=== PATIENT | female | born 1950 | race Caucasian/White ===

== ENCOUNTER 2021-02-15 20:28 | Emergency (ER) | payer MEDICARE, OTHER ==
[~2021-02-15 20:28] MED LIST: AUGMENTIN 875-1 EACH PO; AZITHROMYCIN250 MG PO; BUSPAR 10MG10 MG PO; CRESTOR10 MG PO; DRISDOL1250 MCG PO; ELIQUIS5 MG PO; FISH OIL 1,2001 EACH PO; IPRAT-ALBUT 0.5-3 ML INH; LORATADINE10 MG PO; MEDROL DOSEPAK 24 MG PO; MUCINEX600 MG PO; MUPIROCIN22 GM TOP; PROAIR HFA8.5 GM INH; SOTALOL80 MG PO; TRIAMCINOLONE A80 GM TOP; VITAMIN B-121000 MCG PO; VITAMIN C500 M4 PO; VITAMIN E400 UNI4 PO; ZOLOFT100 MG PO
== END 2021-02-15 22:26 | disposition home or self-care (01) ==
LOC: ER1 20:28
DX: T78.40XA Allergy, unspecified, initial encounter (principal)
CPT/HCPCS: 96372; 99282; J2930

== ENCOUNTER → 2021-04-19 | Outpatient (CLI) | payer MEDICARE, OTHER | LOC: HEART 5 04-17 11:00 | DX: I20.9 Angina pectoris, unspecified (principal); R06.02 Shortness of breath ==

== ENCOUNTER 2021-08-05 18:15 | Emergency (ER) | payer MEDICARE, OTHER ==
[2021-08-05] MEDS ORDERED: IBU400 MG PO (19:36)
== END 2021-08-05 20:22 | disposition home or self-care (01) ==
LOC: ER1 18:15
DX: S92.354A Nondisplaced fracture of fifth metatarsal bone, right foot, initial encounter for closed fracture (principal); W19.XXXA Unspecified fall, initial encounter
CPT/HCPCS: 73610; 73630; 99283

== ENCOUNTER → 2021-10-11 | Outpatient (CLI) | payer MEDICARE, OTHER ==
[~2021-10-11] MED LIST changes: +IBU400 MG PO
== END ==
LOC: KOH-I 09:10
DX: S92.351D Displaced fracture of fifth metatarsal bone, right foot, subsequent encounter for fracture with routine healing (principal)
CPT/HCPCS: 73630

== ENCOUNTER 2021-10-24 09:14 | Emergency (ER) | payer MEDICARE, OTHER ==
[2021-10-24 09:52] LABS: HEMOGLOBIN 13.4 gm/dl (12.3-15.3); RED BLOOD COUNT 4.27 M/UL (4.00-5.10); WHITE BLOOD COUNT 4.4 K/UL (4.5-11.0)
[2021-10-24 10:15] LABS: BUN/CREATININE RATIO 20 (0-10)
== END 2021-10-24 11:00 | disposition home or self-care (01) ==
LOC: ER1 09:14
PROVIDERS: Physician Assistant
DX: J06.9 Acute upper respiratory infection, unspecified (principal); I11.9 Hypertensive heart disease without heart failure; I48.91 Unspecified atrial fibrillation; Z20.822 Contact with and (suspected) exposure to COVID-19
CPT/HCPCS: 0240U; 71045; 80053; 81001; 84439; 84443; 85025; 87081; 87086; 87880; 96374; 99283

== ENCOUNTER → 2021-11-05 | Outpatient (CLI) | payer MEDICARE, OTHER | LOC: KOH-I 08:44 | DX: S92.351D Displaced fracture of fifth metatarsal bone, right foot, subsequent encounter for fracture with routine healing (principal) | CPT/HCPCS: 73630 ==

== ENCOUNTER → 2021-12-13 | Outpatient (CLI) | payer MEDICARE, OTHER | LOC: KOH-I 08:18 | DX: S92.351A Displaced fracture of fifth metatarsal bone, right foot, initial encounter for closed fracture (principal) | CPT/HCPCS: 73630 ==